=== PATIENT | male | born 1970 | race African-American/Black ===

== ENCOUNTER 2020-03-01 22:22 | Inpatient (IN) ==
[2020-03-01] MEDS ORDERED: cefTRIAXone 1,000 MG in SODIUM CHLORIDE 0.9% 100 ML IV STA (23:28)
[2020-03-01 23:56] LABS: Basophils % 0.5 % (0.0-0.8); Eosinophils % 0.3 % (0.00-10.9); Hematocrit 43.5 VOL% (42.0-52.0); Immature Granulocytes % 0.3 %; Immature Granulocytes Absolute 0.02 #; Lymphocytes % 17.2 % (21.2-54.2); Mean Corpuscular HGB Conc 32.2 GM/DL (32-36); Mean Corpuscular Volume 77.7 FL (87-102); Mean Platelet Volume 10.5 FL (9.6-12.0); Monocytes % 11.7 % (1.7-12.7); Platelet Count 219 T/CUMM (130-400); Red Cell Distribution Width 16.7 % (9.3-17.3)
[2020-03-02 00:21] LABS: Calcium 8.8 MG/DL (8.5-10.1); Osmolality,Calculated 282.1 MOS/KG (273-304)
[2020-03-02] MEDS ORDERED: ACETAMINOPHEN 325 MG TABLET PO PRN (01:01)
[2020-03-02] MEDS ORDERED: DOCUSATE SODIUM 100 MG CAPSULE PO PRN (01:01)
[2020-03-02] MEDS ORDERED: NICOTINE 21 MG/24 HR PATCH TRANSDERM PRN (01:01)
[2020-03-02] MEDS ORDERED: GLUCAGON 1 MG VIAL IM PRN (01:01)
[2020-03-02] MEDS ORDERED: DEXTROSE 50% 25 GM/50 ML VIAL IV PRN ×2 (01:01)
[2020-03-02] MEDS ORDERED: ZALEPLON 5 MG CAPSULE PO PRN (01:01)
[2020-03-02] MEDS ORDERED: diphenhydrAMINE CAP 25 MG CAPSULE PO PRN (01:01)
[2020-03-02] MEDS ORDERED: hydrALAZINE 20 MG/1 ML VIAL IV PRN (01:01)
[2020-03-02] MEDS ORDERED: guaiFENesin/DM ER 600-30 MG TABLET PO PRN (01:01)
[2020-03-02] MEDS ORDERED: CETIRIZINE 10 MG TABLET PO PRN (01:08)
[2020-03-02] MEDS: CLINDAMYCIN INJ 600 MG in PREMIX 1 EACH IV SCH ×3 (01:40→16:35)
[2020-03-02] MEDS: ENOXAPARIN 100 MG/ML SYRINGE SUBCUT SCH ×2 (01:40→13:30)
[2020-03-02] MEDS: SODIUM CHLORIDE 0.9% 1,000 ML IV SCH ×2 (01:40→11:10)
[2020-03-02] MEDS ORDERED: INFLUENZA VIRUS VACCINE 0.5 ML SYRINGE IM ONE (04:52)
[2020-03-02 06:34] LABS: Basophils % 0.4 % (0.0-0.8); Eosinophils % 0.5 % (0.00-10.9); Hematocrit 41.8 VOL% (42.0-52.0); Hemoglobin 13.7 GM/DL (14.0-18.0); Immature Granulocytes % 0.4 %; Immature Granulocytes Absolute 0.03 #; Lymphocytes # 1.4 10*3/uL (1.4-4.0); Lymphocytes % 18.8 % (21.2-54.2); Mean Corpuscular HGB Conc 32.8 GM/DL (32-36); Mean Corpuscular Volume 77.8 FL (87-102); Mean Platelet Volume 10.6 FL (9.6-12.0); Monocytes % 11.5 % (1.7-12.7); Neutrophils % 68.4 % (38.7-73.9); Platelet Count 210 T/CUMM (130-400); Red Blood Count 5.37 MC/CUMM (3.8-5.5); Red Cell Distribution Width 16.6 % (9.3-17.3); White Blood Count 7.5 T/CUMM (4-12)
[2020-03-02 06:59] LABS: INR 1.2; PT Patient Result 13.2 SECS (9.8-11.9); Partial Thromboplastin Time 29.2 SECS (23.9-33.8)
[2020-03-02 07:02] LABS: Albumin 2.7 G/DL (3.4-5.0); Bilirubin,Total 1.3 MG/DL (0.2-1.0); Calcium 8.6 MG/DL (8.5-10.1); Osmolality,Calculated 276.2 MOS/KG (273-304); Risk Ratio 8.86; Total Protein 6.3 G/DL (6.4-8.3)
[2020-03-02] MEDS: INSULIN LISPRO 100 UNIT/ML SUBCUT SCH ×4 (08:55→21:53)
[2020-03-02] MEDS ORDERED: predniSONE 20 MG TABLET PO SCH (09:00)
[2020-03-02] MEDS: INSULIN GLARGINE 100 UNIT/ML SUBCUT SCH (21:53)
[2020-03-03] MEDS: ENOXAPARIN 100 MG/ML SYRINGE SUBCUT SCH ×2 (00:45→15:05)
[2020-03-03] MEDS: CLINDAMYCIN INJ 600 MG in PREMIX 1 EACH IV SCH ×3 (00:45→17:25)
[2020-03-03] MEDS ORDERED: METOPROLOL TARTRATE 5 MG/5 ML VIAL IV ONE (06:17)
[2020-03-03 06:49] LABS: Basophils % 0.2 % (0.0-0.8); Hematocrit 40.9 VOL% (42.0-52.0); Hemoglobin 13.5 GM/DL (14.0-18.0); Immature Granulocytes % 0.2 %; Immature Granulocytes Absolute 0.02 #; Lymphocytes # 1.1 10*3/uL (1.4-4.0); Lymphocytes % 13.4 % (21.2-54.2); Mean Corpuscular Volume 75.7 FL (87-102); Mean Platelet Volume 10.3 FL (9.6-12.0); Neutrophils % 75.2 % (38.7-73.9); Platelet Count 201 T/CUMM (130-400); Red Cell Distribution Width 16.4 % (9.3-17.3); White Blood Count 8.1 T/CUMM (4-12)
[2020-03-03 07:14] LABS: Calcium 8.5 MG/DL (8.5-10.1); Osmolality,Calculated 272.5 MOS/KG (273-304)
[2020-03-03] MEDS: INSULIN LISPRO 100 UNIT/ML SUBCUT SCH ×4 (08:49→21:07)
[2020-03-03] MEDS: FUROSEMIDE 40 MG/4 ML VIAL IV SCH (09:59)
[2020-03-03] MEDS ORDERED: carvediloL 3.125 MG TABLET PO SCH (13:00)
[2020-03-03] MEDS ORDERED: PANTOPRAZOLE 40 MG TABLET PO PRN (13:39)
[2020-03-03] MEDS: INSULIN GLARGINE 100 UNIT/ML SUBCUT SCH (21:07)
[2020-03-03] MEDS: carvediloL 6.25 MG TABLET PO SCH (21:07)
[2020-03-03] MEDS: APIXABAN 5 MG TABLET PO SCH (21:07)
[2020-03-04] MEDS: CLINDAMYCIN INJ 600 MG in PREMIX 1 EACH IV SCH ×3 (01:27→17:13)
[2020-03-04] MEDS: ONDANSETRON 4 MG/2 ML VIAL IV PRN (03:32)
[2020-03-04] MEDS ORDERED: PROMETHAZINE 25 MG/1 ML VIAL IM ONE (04:33)
[2020-03-04 06:01] LABS: Basophils # 0.1 10*3/uL (0.0-0.2); Basophils % 0.7 % (0.0-0.8); Eosinophils # 0.1 10*3/uL (0.0-0.87); Eosinophils % 1.5 % (0.00-10.9); Hematocrit 44.3 VOL% (42.0-52.0); Hemoglobin 14.3 GM/DL (14.0-18.0); Immature Granulocytes % 0.3 %; Immature Granulocytes Absolute 0.02 #; Lymphocytes # 1.5 10*3/uL (1.4-4.0); Lymphocytes % 19.6 % (21.2-54.2); Mean Corpuscular HGB Conc 32.3 GM/DL (32-36); Mean Corpuscular Volume 76.1 FL (87-102); Mean Platelet Volume 10.6 FL (9.6-12.0); Monocytes % 10.7 % (1.7-12.7); Neutrophils % 67.2 % (38.7-73.9); Platelet Count 237 T/CUMM (130-400); Red Blood Count 5.82 MC/CUMM (3.8-5.5); White Blood Count 7.5 T/CUMM (4-12)
[2020-03-04 06:43] LABS: Calcium 8.4 MG/DL (8.5-10.1); Osmolality,Calculated 278.1 MOS/KG (273-304)
[2020-03-04] MEDS: INSULIN LISPRO 100 UNIT/ML SUBCUT SCH ×4 (08:42→21:42)
[2020-03-04] MEDS: carvediloL 6.25 MG TABLET PO SCH ×2 (08:43→21:42)
[2020-03-04] MEDS: FUROSEMIDE 40 MG/4 ML VIAL IV SCH (08:43)
[2020-03-04] MEDS: APIXABAN 5 MG TABLET PO SCH ×2 (08:43→21:42)
[2020-03-04] MEDS ORDERED: FUROSEMIDE 40 MG TABLET PO SCH (09:00)
[2020-03-04] MEDS ORDERED: ROSUVASTATIN 10 MG TABLET PO SCH (09:00)
[2020-03-04] MEDS: SACUBITRIL/VALSARTAN 49-51 MG TABLET PO SCH ×2 (12:00→21:42)
[2020-03-04] MEDS: EZETIMIBE 10 MG TABLET PO SCH (21:42)
[2020-03-04] MEDS: INSULIN GLARGINE 100 UNIT/ML SUBCUT SCH (21:43)
[2020-03-05] MEDS: CLINDAMYCIN INJ 600 MG in PREMIX 1 EACH IV SCH ×3 (01:38→17:19)
[2020-03-05 05:37] LABS: Basophils % 0.6 % (0.0-0.8); Eosinophils # 0.1 10*3/uL (0.0-0.87); Eosinophils % 1.4 % (0.00-10.9); Hematocrit 39.9 VOL% (42.0-52.0); Hemoglobin 13.3 GM/DL (14.0-18.0); Immature Granulocytes % 0.3 %; Immature Granulocytes Absolute 0.02 #; Lymphocytes # 1.3 10*3/uL (1.4-4.0); Lymphocytes % 19.2 % (21.2-54.2); Mean Corpuscular HGB Conc 33.3 GM/DL (32-36); Mean Corpuscular Volume 74.7 FL (87-102); Mean Platelet Volume 10.8 FL (9.6-12.0); Monocytes % 12.3 % (1.7-12.7); Neutrophils % 66.2 % (38.7-73.9); Platelet Count 230 T/CUMM (130-400); Red Blood Count 5.34 MC/CUMM (3.8-5.5); Red Cell Distribution Width 16.1 % (9.3-17.3); White Blood Count 6.6 T/CUMM (4-12)
[2020-03-05 05:57] LABS: Calcium 8.2 MG/DL (8.5-10.1); Osmolality,Calculated 276.8 MOS/KG (273-304)
[2020-03-05] MEDS: SACUBITRIL/VALSARTAN 49-51 MG TABLET PO SCH ×2 (09:32→21:24)
[2020-03-05] MEDS: carvediloL 6.25 MG TABLET PO SCH (09:32)
[2020-03-05] MEDS: APIXABAN 5 MG TABLET PO SCH (09:32)
[2020-03-05] MEDS: ROSUVASTATIN 20 MG TABLET PO SCH (09:32)
[2020-03-05] MEDS: FUROSEMIDE 40 MG/4 ML VIAL IV SCH (09:33)
[2020-03-05] MEDS: INSULIN LISPRO 100 UNIT/ML SUBCUT SCH ×4 (09:54→21:23)
[2020-03-05] MEDS: POTASSIUM CHLORIDE 20 MEQ TABLET PO SCH (12:33)
[2020-03-05] MEDS: carvediloL 12.5 MG TABLET PO SCH (21:24)
[2020-03-05] MEDS: SPIRONOLACTONE 25 MG TABLET PO SCH (21:24)
[2020-03-05] MEDS: EZETIMIBE 10 MG TABLET PO SCH (21:24)
[2020-03-05] MEDS: INSULIN GLARGINE 100 UNIT/ML SUBCUT SCH (21:25)
[2020-03-06] MEDS: CLINDAMYCIN INJ 600 MG in PREMIX 1 EACH IV SCH ×3 (01:00→17:58)
[2020-03-06 06:29] LABS: Basophils % 0.5 % (0.0-0.8); Eosinophils # 0.1 10*3/uL (0.0-0.87); Eosinophils % 1.7 % (0.00-10.9); Hemoglobin 13.2 GM/DL (14.0-18.0); Immature Granulocytes % 0.4 %; Immature Granulocytes Absolute 0.03 #; Lymphocytes # 1.1 10*3/uL (1.4-4.0); Lymphocytes % 14.5 % (21.2-54.2); Mean Corpuscular HGB Conc 32.2 GM/DL (32-36); Mean Corpuscular Volume 77.4 FL (87-102); Mean Platelet Volume 11.3 FL (9.6-12.0); Monocytes % 14.2 % (1.7-12.7); Neutrophils % 68.7 % (38.7-73.9); Platelet Count 229 T/CUMM (130-400); Red Cell Distribution Width 16.8 % (9.3-17.3); White Blood Count 7.7 T/CUMM (4-12)
[2020-03-06 06:41] LABS: Calcium 8.2 MG/DL (8.5-10.1); Osmolality,Calculated 285.8 MOS/KG (273-304)
[2020-03-06] MEDS: INSULIN LISPRO 100 UNIT/ML SUBCUT SCH ×4 (09:41→20:58)
[2020-03-06] MEDS: FUROSEMIDE 40 MG/4 ML VIAL IV SCH (09:41)
[2020-03-06] MEDS: SACUBITRIL/VALSARTAN 49-51 MG TABLET PO SCH ×2 (09:42→21:00)
[2020-03-06] MEDS: POTASSIUM CHLORIDE 20 MEQ TABLET PO SCH (09:42)
[2020-03-06] MEDS: ASPIRIN EC 81 MG TABLET PO SCH (09:42)
[2020-03-06] MEDS: SPIRONOLACTONE 25 MG TABLET PO SCH ×2 (09:42→21:00)
[2020-03-06] MEDS: carvediloL 12.5 MG TABLET PO SCH ×4 (09:43→20:59)
[2020-03-06] MEDS: ROSUVASTATIN 20 MG TABLET PO SCH (09:43)
[2020-03-06 12:34] LABS: Total Protein 24 Hr Ur Result 870 MG/24HR (0-149.1); Total Volume,Urine 2900 ML (400-2000)
[2020-03-06] MEDS: INSULIN GLARGINE 100 UNIT/ML SUBCUT SCH (20:58)
[2020-03-06] MEDS: EZETIMIBE 10 MG TABLET PO SCH (20:59)
[2020-03-07] MEDS: CLINDAMYCIN INJ 600 MG in PREMIX 1 EACH IV SCH ×3 (00:35→18:16)
[2020-03-07 07:01] LABS: Basophils % 0.6 % (0.0-0.8); Eosinophils # 0.1 10*3/uL (0.0-0.87); Eosinophils % 1.7 % (0.00-10.9); Hematocrit 40.2 VOL% (42.0-52.0); Hemoglobin 12.9 GM/DL (14.0-18.0); Immature Granulocytes % 0.5 %; Immature Granulocytes Absolute 0.03 #; Lymphocytes # 1.3 10*3/uL (1.4-4.0); Lymphocytes % 20.3 % (21.2-54.2); Mean Corpuscular HGB Conc 32.1 GM/DL (32-36); Mean Corpuscular Volume 76.4 FL (87-102); Mean Platelet Volume 10.3 FL (9.6-12.0); Monocytes % 13.3 % (1.7-12.7); Neutrophils % 63.6 % (38.7-73.9); Platelet Count 200 T/CUMM (130-400); Red Blood Count 5.26 MC/CUMM (3.8-5.5); White Blood Count 6.6 T/CUMM (4-12)
[2020-03-07 07:14] LABS: Calcium 8.3 MG/DL (8.5-10.1); Osmolality,Calculated 272.1 MOS/KG (273-304)
[2020-03-07] MEDS: ASPIRIN EC 81 MG TABLET PO SCH (08:56)
[2020-03-07] MEDS: ROSUVASTATIN 20 MG TABLET PO SCH (08:57)
[2020-03-07] MEDS: POTASSIUM CHLORIDE 20 MEQ TABLET PO SCH (08:57)
[2020-03-07] MEDS: FUROSEMIDE 40 MG/4 ML VIAL IV SCH (09:10)
[2020-03-07] MEDS: carvediloL 12.5 MG TABLET PO SCH ×2 (09:10→20:53)
[2020-03-07] MEDS: INSULIN LISPRO 100 UNIT/ML SUBCUT SCH ×4 (09:10→20:57)
[2020-03-07] MEDS: SPIRONOLACTONE 25 MG TABLET PO SCH ×2 (09:10→20:53)
[2020-03-07] MEDS: SACUBITRIL/VALSARTAN 49-51 MG TABLET PO SCH ×2 (09:10→20:52)
[2020-03-07] MEDS ORDERED: DIAZEPAM 5 MG TABLET PO ONE (09:35)
[2020-03-07] MEDS ORDERED: diphenhydrAMINE CAP 25 MG CAPSULE PO ONE (09:35)
[2020-03-07] MEDS ORDERED: LIDOCAINE 1% 20 ML VIAL ONE (10:42)
[2020-03-07] MEDS ORDERED: fentaNYL 100 MCG/2 ML VIAL ONE (11:02)
[2020-03-07] MEDS ORDERED: MIDAZOLAM 2 MG/2 ML VIAL ONE (11:02)
[2020-03-07] MEDS ORDERED: SODIUM CHLORIDE 0.9% 1,000 ML IV SCH (12:00)
[2020-03-07] MEDS: ONDANSETRON 4 MG/2 ML VIAL IV PRN (16:53)
[2020-03-07] MEDS: EZETIMIBE 10 MG TABLET PO SCH (20:53)
[2020-03-07] MEDS: INSULIN GLARGINE 100 UNIT/ML SUBCUT SCH (20:57)
[2020-03-08] MEDS: CLINDAMYCIN INJ 600 MG in PREMIX 1 EACH IV SCH ×2 (01:24→09:00)
[2020-03-08 06:00] LABS: Basophils # 0.1 10*3/uL (0.0-0.2); Basophils % 0.9 % (0.0-0.8); Eosinophils # 0.1 10*3/uL (0.0-0.87); Eosinophils % 1.4 % (0.00-10.9); Hemoglobin 13.2 GM/DL (14.0-18.0); Immature Granulocytes % 0.3 %; Immature Granulocytes Absolute 0.02 #; Lymphocytes # 1.6 10*3/uL (1.4-4.0); Lymphocytes % 24.5 % (21.2-54.2); Mean Corpuscular HGB Conc 32.2 GM/DL (32-36); Mean Corpuscular Volume 76.4 FL (87-102); Mean Platelet Volume 10.6 FL (9.6-12.0); Monocytes % 14.1 % (1.7-12.7); Neutrophils % 58.8 % (38.7-73.9); Platelet Count 199 T/CUMM (130-400); Red Blood Count 5.37 MC/CUMM (3.8-5.5); Red Cell Distribution Width 17.2 % (9.3-17.3); White Blood Count 6.4 T/CUMM (4-12)
[2020-03-08 06:11] LABS: Calcium 8.5 MG/DL (8.5-10.1); Osmolality,Calculated 275.1 MOS/KG (273-304)
[2020-03-08 06:12] LABS: Calcium 8.4 MG/DL (8.5-10.1); Osmolality,Calculated 272.2 MOS/KG (273-304)
[2020-03-08] MEDS ORDERED: ROSUVASTATIN 20 MG TABLET PO SCH (09:00)
[2020-03-08] MEDS ORDERED: RANOLAZINE 500 MG TABLET PO SCH (09:00)
[2020-03-08] MEDS: carvediloL 12.5 MG TABLET PO SCH (09:05)
[2020-03-08] MEDS: ASPIRIN EC 81 MG TABLET PO SCH (09:05)
[2020-03-08] MEDS: SACUBITRIL/VALSARTAN 49-51 MG TABLET PO SCH (09:05)
[2020-03-08] MEDS: FUROSEMIDE 40 MG/4 ML VIAL IV SCH (09:05)
[2020-03-08] MEDS: APIXABAN 5 MG TABLET PO SCH (09:06)
[2020-03-08] MEDS: POTASSIUM CHLORIDE 20 MEQ TABLET PO SCH (09:06)
[2020-03-08] MEDS: SPIRONOLACTONE 25 MG TABLET PO SCH (09:06)
[2020-03-08] MEDS: INSULIN LISPRO 100 UNIT/ML SUBCUT SCH ×2 (10:08→12:05)
[2020-03-08 11:35] VITALS: BP 105/71
== END 2020-03-08 14:30 | disposition home health service (06) | DRG 287 ==
LOC: N.ED 22:22 → N.EDINP 22:22 → SUATTDRO 03-02 01:01 → N.3E 03-02 02:31
PROVIDERS: ADMIT Internal Medicine; ATTEND Family Medicine

== ENCOUNTER 2020-12-07 02:44 | Inpatient (IN) ==
[2020-12-07] MEDS ORDERED: LABETALOL 20 MG/4 ML SYRINGE IV STA (03:18)
[2020-12-07] MEDS ORDERED: ONDANSETRON 4 MG/2 ML VIAL IV STA (03:18)
[2020-12-07 04:22] LABS: Basophils % 0.4 % (0.0-0.8); Eosinophils % 0.3 % (0.00-10.9); Hematocrit 48.8 VOL% (42.0-52.0); Hemoglobin 15.6 GM/DL (14.0-18.0); Immature Granulocytes % 0.5 %; Immature Granulocytes Absolute 0.05 #; Lymphocytes # 1.4 10*3/uL (1.4-4.0); Lymphocytes % 14.3 % (21.2-54.2); Mean Corpuscular Volume 82.2 FL (87-102); Mean Platelet Volume 11.4 FL (9.6-12.0); Monocytes % 10.2 % (1.7-12.7); Neutrophils % 74.3 % (38.7-73.9); Platelet Count 193 T/CUMM (130-400); Red Blood Count 5.94 MC/CUMM (3.8-5.5); Red Cell Distribution Width 13.2 % (9.3-17.3)
[2020-12-07] MEDS ORDERED: GLUCAGON 1 MG VIAL IM PRN (04:42)
[2020-12-07] MEDS ORDERED: ACETAMINOPHEN 325 MG TABLET PO PRN (04:42)
[2020-12-07] MEDS ORDERED: hydrALAZINE 20 MG/1 ML VIAL IV PRN (04:42)
[2020-12-07] MEDS ORDERED: DEXTROSE 50% 25 GM/50 ML VIAL IV PRN (04:42)
[2020-12-07] MEDS ORDERED: ONDANSETRON 4 MG/2 ML VIAL IV PRN (04:42)
[2020-12-07 04:43] LABS: Alanine Aminotransferase 31 U/L (16-61); Albumin 4.5 G/DL (3.4-5.0); Alkaline Phosphatase 93 U/L (45-117); Aspartate Amino Transferase 23 U/L (0-37); Blood Urea Nitrogen 21 MG/DL (7-18); Calcium 9.3 MG/DL (8.5-10.1); Carbon Dioxide 28 MMOL/L (21-32); Estimated Glom Filtration Rate 84 ML/MIN; Glucose 308 MG/DL (74-106); Osmolality,Calculated 284.1 MOS/KG (273-304); Potassium 3.9 MMOL/L (3.5-5.1); Sodium 135 MMOL/L (136-145); Total Protein 8.1 G/DL (6.4-8.2)
[2020-12-07 05:21] LABS: Risk Ratio 7.02; VLDL Cholesterol 37.4 MG/DL
[2020-12-07 05:25] LABS: PT Patient Result 11.3 SECS (10.5-12.0); Partial Thromboplastin Time 25.6 SECS (23.9-33.8)
[2020-12-07 05:57] LABS: Bilirubin,Urine Negative (Negative); Blood, Urine Moderate mg/dL (Negative); Glucose,Urine (UA) >=500 mg/dL (Negative); Granular Casts,Urine 6 /LPF (0-1); Hyaline Casts,Urine 11 /LPF (0-3); Ketones,Urine 5 mg/dL (Negative); Mucus,Urine Occasional /LPF (Occasional); Nitrite,Urine Negative (Negative); Protein,Urine 100 MG/DL; RBC,Urine 3 /HPF (0-4); Squamous Epithelial Cell,Urine Occasional /HPF (0-10); Urine Appearance CLEAR (Clear); Urine Color Yellow (Yellow); Urine Urobilinogen < 2.0 EU/DL (0.2-1.0)
[2020-12-07 06:05] LABS: Barbiturates Screen,Urine Negative (Negative); Benzodiazepines Screen,Urine Negative (Negative); Cannabinoid Screen,Urine Negative (Negative); Opiate Screen,Urine Negative (Negative); Phencyclidine Screen,Urine Negative (Negative)
[2020-12-07] MEDS: INSULIN REGULAR 100 UNIT/ML SUBCUT SCH ×4 (08:27→22:40)
[2020-12-07] MEDS ORDERED: ROSUVASTATIN 10 MG TABLET PO SCH (09:00)
[2020-12-07] MEDS: ASPIRIN EC 81 MG TABLET PO SCH (09:33)
[2020-12-07] MEDS: carvediloL 25 MG TABLET PO SCH ×2 (09:33→22:11)
[2020-12-07] MEDS: amLODIPine 5 MG TABLET PO SCH (09:33)
[2020-12-07] MEDS: SACUBITRIL/VALSARTAN 49-51 MG TABLET PO SCH ×2 (09:33→22:11)
[2020-12-07] MEDS: EZETIMIBE 10 MG TABLET PO SCH (22:11)
[2020-12-08] MEDS: ASPIRIN EC 81 MG TABLET PO SCH (08:23)
[2020-12-08] MEDS: SACUBITRIL/VALSARTAN 49-51 MG TABLET PO SCH ×2 (08:23→21:01)
[2020-12-08] MEDS: amLODIPine 5 MG TABLET PO SCH (08:23)
[2020-12-08] MEDS: ATORVASTATIN 80 MG TABLET PO SCH (08:23)
[2020-12-08] MEDS: INSULIN REGULAR 100 UNIT/ML SUBCUT SCH ×4 (08:23→22:14)
[2020-12-08] MEDS: carvediloL 25 MG TABLET PO SCH ×2 (08:23→21:02)
[2020-12-08] MEDS ORDERED: RIVAROXABAN 20 MG TABLET PO ONE (09:41)
[2020-12-08] MEDS: RIVAROXABAN 20 MG TABLET PO SCH (11:44)
[2020-12-08] MEDS: BACITRACIN OINT 0.9 GM PACK TOP SCH (16:24)
[2020-12-08] MEDS ORDERED: ALUMINUM/MAGNES/SIMETH MAX STR 30 ML UDCUP PO PRN (16:45)
[2020-12-08] MEDS ORDERED: CALCIUM CARBONATE CHEW 500 MG TABLET PO PRN (16:45)
[2020-12-08] MEDS: EZETIMIBE 10 MG TABLET PO SCH (21:02)
[2020-12-09 06:03] LABS: Basophils % 0.5 % (0.0-0.8); Eosinophils # 0.1 10*3/uL (0.0-0.87); Eosinophils % 1.7 % (0.00-10.9); Hematocrit 41.6 VOL% (42.0-52.0); Hemoglobin 13.4 GM/DL (14.0-18.0); Immature Granulocytes % 0.3 %; Immature Granulocytes Absolute 0.02 #; Lymphocytes # 1.6 10*3/uL (1.4-4.0); Lymphocytes % 26.3 % (21.2-54.2); Mean Corpuscular HGB Conc 32.2 GM/DL (32-36); Mean Corpuscular Volume 82.5 FL (87-102); Monocytes % 12.4 % (1.7-12.7); Neutrophils % 58.8 % (38.7-73.9); Platelet Count 171 T/CUMM (130-400); Red Blood Count 5.04 MC/CUMM (3.8-5.5); Red Cell Distribution Width 13.2 % (9.3-17.3)
[2020-12-09 06:30] LABS: Calcium 8.7 MG/DL (8.5-10.1); Osmolality,Calculated 282.2 MOS/KG (273-304); Potassium 3.7 MMOL/L (3.5-5.1)
[2020-12-09] MEDS ORDERED: RIVAROXABAN 20 MG TABLET PO SCH (08:00)
[2020-12-09] MEDS: INSULIN REGULAR 100 UNIT/ML SUBCUT SCH ×4 (09:19→22:02)
[2020-12-09] MEDS: carvediloL 25 MG TABLET PO SCH ×2 (09:20→20:41)
[2020-12-09] MEDS: SACUBITRIL/VALSARTAN 49-51 MG TABLET PO SCH ×2 (09:20→20:41)
[2020-12-09] MEDS: ASPIRIN EC 81 MG TABLET PO SCH (09:20)
[2020-12-09] MEDS: amLODIPine 5 MG TABLET PO SCH (09:20)
[2020-12-09] MEDS: RIVAROXABAN 20 MG TABLET PO SCH (09:20)
[2020-12-09] MEDS: ATORVASTATIN 80 MG TABLET PO SCH (09:20)
[2020-12-09] MEDS: BACITRACIN OINT 0.9 GM PACK TOP SCH (17:03)
[2020-12-09] MEDS: EZETIMIBE 10 MG TABLET PO SCH (20:41)
[2020-12-09] MEDS: INSULIN GLARGINE 100 UNIT/ML SUBCUT SCH (22:02)
[2020-12-10] MEDS: SACUBITRIL/VALSARTAN 49-51 MG TABLET PO SCH ×2 (09:01→21:06)
[2020-12-10] MEDS: carvediloL 25 MG TABLET PO SCH ×2 (09:01→21:06)
[2020-12-10] MEDS: amLODIPine 5 MG TABLET PO SCH (09:01)
[2020-12-10] MEDS: ATORVASTATIN 80 MG TABLET PO SCH (09:01)
[2020-12-10] MEDS: ASPIRIN EC 81 MG TABLET PO SCH (09:02)
[2020-12-10] MEDS: RIVAROXABAN 20 MG TABLET PO SCH (09:02)
[2020-12-10] MEDS: INSULIN REGULAR 100 UNIT/ML SUBCUT SCH ×4 (09:36→22:52)
[2020-12-10] MEDS: BACITRACIN OINT 0.9 GM PACK TOP SCH (15:20)
[2020-12-10] MEDS: EZETIMIBE 10 MG TABLET PO SCH (21:06)
[2020-12-10] MEDS: INSULIN GLARGINE 100 UNIT/ML SUBCUT SCH (22:53)
[2020-12-11] MEDS: ATORVASTATIN 80 MG TABLET PO SCH (08:47)
[2020-12-11] MEDS: amLODIPine 5 MG TABLET PO SCH (08:47)
[2020-12-11] MEDS: BACITRACIN OINT 0.9 GM PACK TOP SCH (08:47)
[2020-12-11] MEDS: ASPIRIN EC 81 MG TABLET PO SCH (08:47)
[2020-12-11] MEDS: RIVAROXABAN 20 MG TABLET PO SCH (08:47)
[2020-12-11] MEDS: carvediloL 25 MG TABLET PO SCH (08:47)
[2020-12-11] MEDS: SACUBITRIL/VALSARTAN 49-51 MG TABLET PO SCH (08:47)
[2020-12-11] MEDS: INSULIN REGULAR 100 UNIT/ML SUBCUT SCH ×2 (08:48→12:10)
[2020-12-11] MEDS ORDERED: INSULIN GLARGINE 100 UNIT/ML SUBCUT SCH (09:00)
[2020-12-11 12:26] VITALS: BP 137/92
[2020-12-11] MEDS ORDERED: MAGNESIUM HYDROXIDE SUSP 30 ML UDCUP PO ONE (13:15)
== END 2020-12-11 13:40 | disposition swing bed (61) | DRG 65 ==
LOC: EDUNIT# → EDBD → SUATTDRO → N.EDINP 02:44 → N.ED 02:44 → OBSVTOIN 04:42 → SUATTDRO 04:42 → INTOOBSV 04:42 → SUATTDRO 10:41 → N.EDINP 17:00 → N.3E 17:57
PROVIDERS: ADMIT Internal Medicine; ATTEND Internal Medicine